=== PATIENT | female | born 1965 | race Caucasian/White ===

== ENCOUNTER 2019-06-27 04:13 | Emergency (ER) | payer MEDICARE ==
[~2019-06-27] VITALS: Ht 167.6 cm; Wt 48.1 kg
[2019-06-27] MEDS ORDERED: Hydrocodone-Ap1 EA20 PO (05:02)
[2019-06-27] MEDS ORDERED: METPHE20 PO (05:02)
[2019-06-27] MEDS ORDERED: ADAL40PEN (05:02)
[2019-06-27] MEDS ORDERED: Simvastatin10 MG PO (05:02)
[2019-06-27] MEDS ORDERED: Neurontin 100100 MG GT (05:03)
[2019-06-27] MEDS ORDERED: ADMELOG SO100 UNIT/1 SQ (05:03)
[2019-06-27] MEDS ORDERED: TOUJEO SOL300 UNIT/1 (05:03)
[2019-06-27] MEDS ORDERED: Oxycodone HCl5 M1 PO (07:12)
== END 2019-06-27 07:33 | disposition home or self-care (01) ==
LOC: ER 04:13
DX: S52.602A Unspecified fracture of lower end of left ulna, initial encounter for closed fracture (principal); S52.502A Unspecified fracture of the lower end of left radius, initial encounter for closed fracture; E11.9 Type 2 diabetes mellitus without complications; M06.9 Rheumatoid arthritis, unspecified; Z88.2 Allergy status to sulfonamides; Z79.891 Long term (current) use of opiate analgesic; Z79.4 Long term (current) use of insulin; Z79.899 Other long term (current) drug therapy; W10.9XXA Fall (on) (from) unspecified stairs and steps, initial encounter
CPT/HCPCS: 25605; 73090; 73100; 96360; 96361-59; 99152; 99283-25; A9270; J2704; J7030

== ENCOUNTER 2019-09-11 06:33 | Day surgery (SDC) | payer MEDICARE, OTHER ==
[~2019-09-11] VITALS: Ht 165.1 cm; Wt 52.4 kg
[~2019-09-11 06:33] MED LIST: ADAL40PEN; ADMELOG SO100 UNIT/1 SQ; DESVENLAFAXINE100 MG PO; Enbrel25 MG; Humalog100 UNIT/1 SC; Hydrocodone-Ap1 EA20 PO; METPHE20 PO; Neurontin 100100 MG GT; Oxycodone HCl5 M1 PO; Simvastatin10 MG PO; TOUJEO SOL300 UNIT/1; TOUJEO SOL300 UNIT/1 SC
[2019-09-11] MEDS ORDERED: ADAL40PEN (07:09)
--- NOTE | 2019-09-11 08:50 | NUR ---
09/11/19 [address], RX FOR TRAMADOL AND COPIES OF INSTRUCTIONS. AMBU TO CAR W/SBA X1
== END 2019-09-11 08:35 | disposition home or self-care (01) ==
LOC: ORSCSDS 06:33
PROVIDERS: Orthopaedic Surgery
PROC: 01N50ZZ Release Median Nerve, Open Approach (ICD-10-PCS; principal; 2019-09-11 07:30)
DX: G56.02 Carpal tunnel syndrome, left upper limb (principal); E10.8 Type 1 diabetes mellitus with unspecified complications; E78.5 Hyperlipidemia, unspecified; F41.8 Other specified anxiety disorders; Z79.4 Long term (current) use of insulin; Z79.899 Other long term (current) drug therapy
CPT/HCPCS: 82947; J0690; J2250; J2405; J2704; J3010; J7120

== ENCOUNTER → 2020-08-18 | Outpatient (CLI) | payer MEDICARE, OTHER ==
[~2020-08-18] MED LIST changes: +CEPH500 PO; +Valtrex1000 MG PO
[2020-08-18 14:48] LABS: Hematocrit 39.6 % (33.0-51.0); Hemoglobin 13.8 g/dL (11.5-16.0); Mean Corpuscular HGB 29.9 pg (26.0-34.0); Mean Corpuscular HGB Conc 34.8 g/dL (31.5-36.5); Mean Corpuscular Volume 86 fL (80-100); Mean Platelet Volume 11.4 fL (9.1-12.4); Platelet Count 266 K/mm3 (150-400); RDW Coefficient Variation 13.1 % (11.7-14.2); RDW Standard Deviation 40.8 fL (35.1-46.3); Red Blood Cell Count 4.62 M/mm3 (3.80-5.20)
[2020-08-18 14:57] LABS: Anion Gap 11 mmol/L (6-16); Blood Urea Nitrogen 26 mg/dL (8-24); Bun/Creatinine Ratio 31.7 (12.0-20.0); CO2, Blood 26 mmol/L (21-32); Calcium, Blood 8.6 mg/dL (8.5-10.1); Chloride, Blood 87 mmol/L (98-108); Creatinine, Blood 0.82 mg/dL (0.40-1.00); Glomerular Filtration Rate >60 (60-); Glucose, Blood 336 mg/dL (70-99); Potassium, Blood 3.5 mmol/L (3.5-5.5); Sodium, Blood 124 mmol/L (136-145); Thyroid Stimulating Hormone 0.252 uIU/mL (0.360-4.800)
[2020-08-18 15:23] LABS: BAND PERCENT MAN 16 % (0-8); BASOPHILS PERCENT MAN 0 % (0-2); EOSINOPHILS PERCENT MAN 7 % (0-6); LYMPHOCYTES PERCENT MAN 9 % (21-46); MONOCYTES PERCENT MAN 7 % (4-13); SEG NEUTROPHILS PERCENT MAN 61 % (41-73); TOTAL CELLS COUNTED 100
== END | disposition home or self-care (01) ==
LOC: LAB SHORT 14:34 → LAB EV 14:34
PROVIDERS: Chiropractor
DX: R53.83 Other fatigue (principal)
CPT/HCPCS: 80048; 84443; 85025

== ENCOUNTER → 2020-08-18 | Outpatient (CLI) | payer MEDICARE, OTHER ==
[2020-08-20 15:52] LABS: CORNONAVIRUS (COVID19) CSH-NRL Negative (Negative)
== END | disposition home or self-care (01) ==
LOC: LAB SHORT 17:10 → LAB EV 17:10
PROVIDERS: Chiropractor
DX: D72.829 Elevated white blood cell count, unspecified (principal); R53.83 Other fatigue; Z20.828 Contact with and (suspected) exposure to other viral communicable diseases
CPT/HCPCS: 87077; 87086; 87186; U0003

== ENCOUNTER → 2020-08-19 | Outpatient (CLI) | payer MEDICARE, OTHER ==
[2020-08-19 12:16] LABS: BASOPHILS ABSOLUTE AUTO 0.05 K/mm3 (0.00-0.23); BASOPHILS PERCENT AUTO 0 % (0-2); EOSINOPHILS ABSOLUTE AUTO 0.06 K/mm3 (0.00-0.68); EOSINOPHILS PERCENT AUTO 0 % (0-6); Hematocrit 38.8 % (33.0-51.0); Hemoglobin 13.6 g/dL (11.5-16.0); IMMATURE GRAN ABSOLUTE AUTO 0.11 K/mm3 (0.00-0.10); IMMATURE GRAN PERCENT AUTO 1 % (0-1); LYMPHOCYTES ABSOLUTE AUTO 1.26 K/mm3 (0.84-5.20); LYMPHOCYTES PERCENT AUTO 6 % (21-46); MONOCYTES ABSOLUTE AUTO 2.78 K/mm3 (0.16-1.47); MONOCYTES PERCENT AUTO 13 % (4-13); Mean Corpuscular HGB 29.8 pg (26.0-34.0); Mean Corpuscular HGB Conc 35.1 g/dL (31.5-36.5); Mean Corpuscular Volume 85 fL (80-100); Mean Platelet Volume 11.1 fL (9.1-12.4); NEUTROPHILS ABSOLUTE AUTO 17.21 K/mm3 (1.96-9.15); NEUTROPHILS PERCENT AUTO 80 % (41-73); Platelet Count 271 K/mm3 (150-400); RDW Standard Deviation 40.4 fL (35.1-46.3); Red Blood Cell Count 4.56 M/mm3 (3.80-5.20); White Blood Cell Count 21.47 K/mm3 (4.00-11.30)
[2020-08-19 12:24] LABS: Anion Gap 8 mmol/L (6-16); Blood Urea Nitrogen 19 mg/dL (8-24); Bun/Creatinine Ratio 22.9 (12.0-20.0); CO2, Blood 28 mmol/L (21-32); Calcium, Blood 8.3 mg/dL (8.5-10.1); Chloride, Blood 93 mmol/L (98-108); Creatinine, Blood 0.83 mg/dL (0.40-1.00); Glomerular Filtration Rate >60 (60-); Glucose, Blood 195 mg/dL (70-99); Sodium, Blood 129 mmol/L (136-145)
== END | disposition home or self-care (01) ==
LOC: LAB SHORT 12:06 → LAB EV 12:06
PROVIDERS: Chiropractor
DX: D72.829 Elevated white blood cell count, unspecified (principal); R11.2 Nausea with vomiting, unspecified; R19.7 Diarrhea, unspecified
CPT/HCPCS: 80048; 83605; 85025

== ENCOUNTER 2020-08-20 14:18 | Emergency (ER) | payer MEDICARE, OTHER ==
[~2020-08-20] VITALS: Ht 167.6 cm; Wt 49.9 kg
[~2020-08-20 14:18] MED LIST changes: -CEPH500 PO; -Valtrex1000 MG PO
[2020-08-20 19:20] LABS: Calcium, Ionized (POC) 1.07 mmol/L (1.10-1.46); Chloride (POC) 95 mmol/L (98-108); Creatinine (POC) 0.6 mg/dL (0.6-1.0); Glucose (ISTAT POC) 349 mg/dL (70-99); Hemoglobin (POC) 12.9 g/dL (12.0-16.0); Potassium (POC) 3.2 mmol/L (3.5-5.5); Sodium (POC) 130 mmol/L (135-148); Total CO2 (POC) 23 mmol/L (21-32)
[2020-08-20] MEDS ORDERED: CEPH500 PO (19:33)
[2020-08-20] MEDS ORDERED: Valtrex1000 MG PO (19:33)
== END 2020-08-20 21:09 | disposition home or self-care (01) ==
LOC: ER 14:18
PROVIDERS: Emergency Medicine
DX: E87.6 Hypokalemia (principal); E83.42 Hypomagnesemia; N39.0 Urinary tract infection, site not specified; E11.65 Type 2 diabetes mellitus with hyperglycemia; D72.829 Elevated white blood cell count, unspecified; Z20.828 Contact with and (suspected) exposure to other viral communicable diseases; Z88.2 Allergy status to sulfonamides; Z79.4 Long term (current) use of insulin; Z79.899 Other long term (current) drug therapy
CPT/HCPCS: 36415; 80047; 83735; 85014; 93005; 93010; 96365; 96366; 96368; 99283-25; A9270; J3475; J3480; J7030; U0003

== ENCOUNTER → 2020-08-20 | Outpatient (CLI) | payer MEDICARE, OTHER ==
[2020-08-20 12:18] LABS: BASOPHILS ABSOLUTE AUTO 0.06 K/mm3 (0.00-0.23); BASOPHILS PERCENT AUTO 0 % (0-2); EOSINOPHILS PERCENT AUTO 0 % (0-6); Hematocrit 36.9 % (33.0-51.0); Hemoglobin 12.9 g/dL (11.5-16.0); IMMATURE GRAN ABSOLUTE AUTO 0.16 K/mm3 (0.00-0.10); IMMATURE GRAN PERCENT AUTO 1 % (0-1); LYMPHOCYTES ABSOLUTE AUTO 1.58 K/mm3 (0.84-5.20); LYMPHOCYTES PERCENT AUTO 8 % (21-46); MONOCYTES ABSOLUTE AUTO 2.85 K/mm3 (0.16-1.47); MONOCYTES PERCENT AUTO 14 % (4-13); Mean Corpuscular HGB 29.9 pg (26.0-34.0); Mean Corpuscular Volume 86 fL (80-100); Mean Platelet Volume 11.1 fL (9.1-12.4); NEUTROPHILS ABSOLUTE AUTO 16.53 K/mm3 (1.96-9.15); NEUTROPHILS PERCENT AUTO 78 % (41-73); Platelet Count 282 K/mm3 (150-400); RDW Coefficient Variation 13.2 % (11.7-14.2); RDW Standard Deviation 41.3 fL (35.1-46.3); Red Blood Cell Count 4.31 M/mm3 (3.80-5.20); White Blood Cell Count 21.18 K/mm3 (4.00-11.30)
[2020-08-20 12:28] LABS: Alanine Aminotransfer (ALT/SGP 76 U/L (12-78); Albumin, Blood 2.6 g/dL (3.4-5.0); Albumin/Globulin Ratio 0.6 (0.8-1.8); Alk Phos 84 U/L (40-126); Anion Gap 8 mmol/L (6-16); Aspartate Aminotrans (AST/SGOT 64 U/L (12-37); Bilirubin, Total 0.3 mg/dL (0.1-1.0); Blood Urea Nitrogen 13 mg/dL (8-24); Bun/Creatinine Ratio 14.6 (12.0-20.0); CO2, Blood 28 mmol/L (21-32); Calcium, Blood 8.2 mg/dL (8.5-10.1); Chloride, Blood 95 mmol/L (98-108); Creatinine, Blood 0.89 mg/dL (0.40-1.00); Globulin, Blood 4.3 g/dL (2.2-4.0); Glomerular Filtration Rate >60 (60-); Glucose, Blood 160 mg/dL (70-99); Potassium, Blood 2.6 mmol/L (3.5-5.5); Sodium, Blood 131 mmol/L (136-145); Total Protein, Blood 6.9 g/dL (6.4-8.2)
== END | disposition home or self-care (01) ==
LOC: LAB SHORT 12:11
PROVIDERS: Chiropractor
DX: E86.0 Dehydration (principal)
CPT/HCPCS: 80053; 85025

== ENCOUNTER → 2023-01-25 | Outpatient (CLI) | payer MEDICARE ==
[~2023-01-25] MED LIST changes: +CEPH500 PO; +IBUP600 PO; +Percocet 5-3251 EACH PO; +Valtrex1000 MG PO
== END | disposition home or self-care (01) ==
LOC: LAB SHORT 07:29 → PLD 07:29 → LAB 07:29
DX: L82.1 Other seborrheic keratosis (principal)
CPT/HCPCS: 88305

== ENCOUNTER → 2024-07-17 | Outpatient (CLI) | payer MEDICARE, OTHER ==
[2024-07-25 07:34] LABS: HPV HIGH RISK BY TMA Not Detected; HPV SOURCE Cervical
== END ==
LOC: LAB SHORT 17:32 → LAB 17:32
PROVIDERS: Family Medicine
DX: Z12.4 Encounter for screening for malignant neoplasm of cervix (principal)
CPT/HCPCS: 87624; G0123

== ENCOUNTER 2025-03-18 16:06 | Emergency (ER) | payer MEDICARE ==
[~2025-03-18] VITALS: Ht 167.6 cm; Wt 55.8 kg
[2025-03-18] MEDS ORDERED: NS 1,000 ML IV SCH ×2 (16:15→21:20)
[2025-03-18 16:44] LABS: BASOPHILS ABSOLUTE AUTO 0.05 K/mm3 (0.00-0.23); BASOPHILS PERCENT AUTO 0 % (0-2); EOSINOPHILS ABSOLUTE AUTO 0.16 K/mm3 (0.00-0.68); EOSINOPHILS PERCENT AUTO 1 % (0-6); Hematocrit 41.6 % (33.0-51.0); IMMATURE GRAN ABSOLUTE AUTO 0.03 K/mm3 (0.00-0.10); IMMATURE GRAN PERCENT AUTO 0 % (0-1); LYMPHOCYTES ABSOLUTE AUTO 2.58 K/mm3 (0.84-5.20); LYMPHOCYTES PERCENT AUTO 20 % (21-46); MONOCYTES ABSOLUTE AUTO 1.01 K/mm3 (0.16-1.47); MONOCYTES PERCENT AUTO 8 % (4-13); Mean Corpuscular HGB 30.4 pg (26.0-34.0); Mean Corpuscular HGB Conc 33.7 g/dL (31.5-36.5); Mean Corpuscular Volume 90 fL (80-100); Mean Platelet Volume 10.9 fL (9.1-12.4); NEUTROPHILS ABSOLUTE AUTO 8.87 K/mm3 (1.96-9.15); NEUTROPHILS PERCENT AUTO 70 % (41-73); Platelet Count 350 K/mm3 (150-400); Red Blood Cell Count 4.61 M/mm3 (3.80-5.20)
[2025-03-18 17:08] LABS: Albumin, Blood 3.3 g/dL (3.4-5.0); Albumin/Globulin Ratio 0.7 (0.8-1.8); Bilirubin, Total 0.2 mg/dL (0.1-1.0); Bun/Creatinine Ratio 52.2 (12.0-20.0); Creatinine, Blood 1.59 mg/dL (0.40-1.00); Globulin, Blood 4.7 g/dL (2.2-4.0); Potassium, Blood 3.8 mmol/L (3.5-5.5)
[2025-03-18 18:27] LABS: Calcium, Blood 9.5 mg/dL (8.5-10.1)
[2025-03-18 20:56] LABS: Source, Urine Voided
[2025-03-18 21:05] LABS: Appearance, Urine Clear (Clear); Bilirubin, Urine Neg (Neg); Blood, Urine Neg (Neg); Glucose Qualitative, Urine Neg (Neg); Ketones, Urine Neg (Neg); Leukocyte Esterase, Urine Neg (Neg); Nitrite, Urine Neg (Neg); Protein, Urine 1+ (Neg); Specific Gravity, Urine 1.015 (1.003-1.022); Urobilinogen, Urine NORM (Normal)
[2025-03-18 21:13] LABS: Color, Urine Pale Yellow (P-Yellow)
[2025-03-18 21:30] VITALS: BP 139/63
== END 2025-03-18 21:53 | disposition home or self-care (01) ==
LOC: ER 16:06
PROVIDERS: Emergency Medicine
DX: R55 Syncope and collapse (principal); E10.9 Type 1 diabetes mellitus without complications; Z88.2 Allergy status to sulfonamides; Z79.899 Other long term (current) drug therapy; Z79.4 Long term (current) use of insulin
CPT/HCPCS: 70450; 80053; 83690; 84484; 85025; 93005; 93010; 99284-25; J7030

== ENCOUNTER 2025-04-29 10:26 | Emergency (ER) | payer MEDICARE ==
[~2025-04-29] VITALS: Ht 167.6 cm; Wt 59.9 kg
[2025-04-29] MEDS ORDERED: HYDROmorphone HCl/Pf 1MG SYR IV ONE (10:40)
[2025-04-29] MEDS ORDERED: Propofol 10mg/ml 20 ml Vial (Procedural) IV ONE (11:30)
[2025-04-29] MEDS ORDERED: NS 1,000 ML IV ONE (11:52)
[2025-04-29] MEDS ORDERED: NS 1,000 ML IV SCH (12:25)
[2025-04-29] MEDS ORDERED: OXYC5 PO (12:59)
[2025-04-29 13:25] VITALS: BP 143/63
== END 2025-04-29 13:25 | disposition home or self-care (01) ==
LOC: ER 10:26
DX: S82.851A Displaced trimalleolar fracture of right lower leg, initial encounter for closed fracture (principal); E10.69 Type 1 diabetes mellitus with other specified complication; E10.43 Type 1 diabetes mellitus with diabetic autonomic (poly)neuropathy; K31.84 Gastroparesis; Z79.01 Long term (current) use of anticoagulants; Z79.4 Long term (current) use of insulin; Z79.899 Other long term (current) drug therapy; W17.81XA Fall down embankment (hill), initial encounter
CPT/HCPCS: 27818; 73610; 73700; 96374; 99284-25; J1171; J2704; J7030

== ENCOUNTER 2025-05-06 08:36 | Day surgery (SDC) | payer MEDICARE ==
[~2025-05-06] VITALS: Ht 167.6 cm; Wt 59.1 kg
[~2025-05-06 08:36] MED LIST changes: +Bupivacaine 0.5% W/EPI 1:200000 SDV 30 ML Vial ONE; +OXYC5 PO
[2025-05-06] MEDS ORDERED: FentaNYL Citrate 50 MCG/ML 2 ML Injection ONE ×2 (08:54→09:59)
[2025-05-06] MEDS ORDERED: Midazolam HCl 1MG / ML 2ML Vial ONE (08:54)
[2025-05-06] MEDS ORDERED: Bupivacaine 0.5% HCl 5 MG/ML 30MLVIAL ONE (08:56)
[2025-05-06] MEDS ORDERED: CeFAZolin Sodium 2,000 MG VIAL ONE (09:14)
[2025-05-06] MEDS ORDERED: DESVENLAFAXINE100 M3 PO (09:15)
[2025-05-06] MEDS ORDERED: VITAMIN B-12 (09:16)
[2025-05-06] MEDS ORDERED: VITAMIN D350 MC3 (09:16)
[2025-05-06] MEDS ORDERED: OMEP20ER PO (09:17)
[2025-05-06] MEDS ORDERED: BUSPIRONE HCL5 M6 PO (09:17)
[2025-05-06] MEDS ORDERED: BUSPIRONE HCL10 M6 PO (09:18)
[2025-05-06] MEDS ORDERED: OMNIPOD SQ (09:20)
[2025-05-06] MEDS ORDERED: Ritalin10 MG (09:21)
[2025-05-06] MEDS ORDERED: INSULIN AS100 UNIT/7 (09:21)
[2025-05-06] MEDS ORDERED: DEXCOM G7 SENS1 EACH (09:22)
[2025-05-06] MEDS ORDERED: Premarin0.3 MG (09:22)
--- NOTE | 2025-05-06 09:47 | NUR ---
05/06/25 0947 Trinidad Garcia 0937: TIMEOUT FOR BLOCK 0941: START OF BLOCK BY LIZZIE BURNHAM CRNA 0943: BLOCK COMPLETED BY LIZZIE BURNHAM CRNA. PATIENT TOLERATED WELL.
[2025-05-06] MEDS ORDERED: Ondansetron HCl 2 MG / ML 2ML Vial ONE ×2 (10:04→12:22)
[2025-05-06] MEDS ORDERED: Dexamethasone Sod Phos 10 MG/ML 1ML VIAL ONE (10:04)
[2025-05-06] MEDS ORDERED: Ketorolac Tromethamine 30mg Vial ONE (10:05)
[2025-05-06] MEDS ORDERED: Phenylephrine HCl 100 MCG/ML-NS 10MLSYR (1MG/10ML) ONE (10:16)
--- NOTE | 2025-05-06 10:27 | NUR ---
05/06/25 1027 Monae Hutson THREE INTACT BLISTERS @ INNER RIGHT ANKLE, DR MONTERROSO AWARE
[2025-05-06] MEDS ORDERED: HYDROmorphone HCl/Pf 1MG SYR ONE (11:17)
--- NOTE | 2025-05-06 11:52 | NUR ---
05/06/25 1152 Hi Garcia CAP REFILL LESS THAN 3 SECONDS IN ALL FOUR EXTREMITIES. DENIES PAIN AND NAUSEA AT THIS TIME. O2 SATS 100% ON ROOM AIR.
[2025-05-06 13:04] VITALS: BP 133/77
== END 2025-05-06 13:31 | disposition home or self-care (01) ==
LOC: ORSCSDS 08:36
PROVIDERS: Orthopaedic Surgery
PROC: 0QSG04Z Reposition Right Tibia with Internal Fixation Device, Open Approach (ICD-10-PCS; principal; 2025-05-06 10:00)
PROC: 0QSJ04Z Reposition Right Fibula with Internal Fixation Device, Open Approach (ICD-10-PCS; principal; 2025-05-06 10:00)
DX: S82.851A Displaced trimalleolar fracture of right lower leg, initial encounter for closed fracture (principal); W18.40XA Slipping, tripping and stumbling without falling, unspecified, initial encounter; E11.9 Type 2 diabetes mellitus without complications; Z79.4 Long term (current) use of insulin; E78.5 Hyperlipidemia, unspecified; F41.9 Anxiety disorder, unspecified; F32.A Depression, unspecified; Z79.899 Other long term (current) drug therapy
CPT/HCPCS: 82947; C1713; C1769; J0165; J0690; J1100; J1171; J1885; J2250; J2371; J2405; J2704; J3010; J7120

== ENCOUNTER → 2025-09-29 | Outpatient (CLI) | payer MEDICARE ==
[~2025-09-29] MED LIST changes: +BUSPIRONE HCL10 M6 PO; +BUSPIRONE HCL5 M6 PO; -Bupivacaine 0.5% W/EPI 1:200000 SDV 30 ML Vial ONE; +DESVENLAFAXINE100 M3 PO; +DEXCOM G7 SENS1 EACH; +INSULIN AS100 UNIT/7; +OMEP20ER PO; +OMNIPOD SQ; +Premarin0.3 MG; +Ritalin10 MG; +VITAMIN B-12; +VITAMIN D350 MC3
[2025-09-29 17:14] LABS: Campylobacter Sp Not Detected (NOT DETECT); E. Coli O157 Not Detected (NOT DETECT); Enteroaggregative E. coli-EAEC Not Detected (NOT DETECT); Enteropathogenic E. coli-EPEC Not Detected (NOT DETECT); Enterotoxigenic E. coli-ETEC Not Detected (NOT DETECT); Salmonella Sp Not Detected (NOT DETECT); Shiga Toxin-prod E. coli-STEC Not Detected (NOT DETECT); Shigella/Enteroin E. coli-EIEC Not Detected (NOT DETECT); Vibrio Sp Not Detected (NOT DETECT)
== END | disposition home or self-care (01) ==
LOC: LAB 10:55 → LAB SHORT 10:55
PROVIDERS: Family Medicine
DX: K52.9 Noninfective gastroenteritis and colitis, unspecified (principal)
CPT/HCPCS: 87507